=== PATIENT | male | born 1955 ===

== ENCOUNTER 2017-01-19 08:58 | Emergency (ER) | payer MEDICAID ==
[2017-01-19 09:01] VITALS: RESP 20
[2017-01-19 09:30] LABS: RBC URINE < 1 /hpf (0-3); URINE BACTERIA RARE (<OCC); URINE BILIRUBIN NEGATIVE (NEGATIVE); URINE BLOOD NEGATIVE (NEGATIVE); URINE COLOR Yellow (YELLOW); URINE GLUCOSE (UA) NORMAL (Normal); URINE KETONE NEGATIVE (NEGATIVE); URINE LEUKOCYTE ESTERASE NEG Leu/uL (Negative); URINE PROTEIN 1+ mg/dL (NEGATIVE); URINE UROBILINOGEN NORMAL mg/dL (0.2-1.0); WBC URINE 2 /hpf (0-5)
[2017-01-19] MEDS ORDERED: Sodium Chloride 0.9% 1,000 ML IV ONE (09:36)
[2017-01-19] MEDS ORDERED: Sodium Chloride 0.9% 1,000 ML ONE (09:48)
[2017-01-19 09:56] LABS: BASO % 0.4 % (0.0-2.0); EOS # 0.1 K/uL (0.0-0.7); EOS % 2.3 % (0.0-4.0); HEMATOCRIT 33.7 % (35.0-51.0); LYMPH # 0.9 K/uL (1.0-4.3); LYMPH % 15.5 % (20.0-40.0); MEAN CELL VOLUME 86.5 fL (80.0-94.0); MEAN CORPUSCULAR HEMOGLOBIN 28.8 pg (27.0-31.0); MEAN CORPUSCULAR HGB CONC 33.3 g/dL (33.0-37.0); MEAN PLATELET VOLUME 7.9 fL (7.2-11.7); MONO # 0.6 K/uL (0.0-0.8); MONO % 10.4 % (0.0-10.0); NRBC % 0.1 % (0.0-2.0); RED CELL DISTRIBUTION WIDTH 14.6 % (11.5-14.5); WHITE BLOOD COUNT 6.1 K/uL (4.8-10.8)
[2017-01-19 10:13] LABS: ALB/GLOB RATIO 1.3 (1.0-2.1); ALKALINE PHOSPHATASE 66 U/L (38-126); ALT/SGPT 27 U/L (21-72); AMYLASE 65 U/L (30-110); AST/SGOT 17 U/L (17-59); BILIRUBIN,TOTAL 0.5 mg/dL (0.2-1.3); BLOOD UREA NITROGEN 18 mg/dL (9-20); CALCIUM 8.6 mg/dl (8.6-10.4); CARBON DIOXIDE 23 mmol/L (22-30); CHLORIDE 97 mmol/L (98-107); GFR AFRICAN-AMERICAN > 60; GLUCOSE,RANDOM 165 mg/dL (75-110); POTASSIUM 4.4 mmol/L (3.6-5.2); SODIUM 135 mmol/L (132-148)
[2017-01-19] MEDS ORDERED: Iodixanol 320 MG/ML 100 ML BOTTLE IV ONE ×2 (10:57→11:07)
--- NOTE | 2017-01-19 11:14 | C.PDOC ---
History Of Present Illness Patient is a 61 year old male, with PMHx of NIDDM, presents to ED for evaluation of intermittent epigastric and periumbilical abdominal pain for the last 3 days. Pt states that pain is localized, non-radiating, and is not affected by food intake. However, pt notes decrease in appetite. Pt reports associated nausea, and single episodes of vomiting throughout the 3 days. Otherwise, pt denies fever, chills, headache, dizziness, neck pain, chest pain, shortness of breath, dyspnea, diaphoresis, palpitation, hematemesis, diarrhea, blood in stool, dysuria, hematuria, urinary frequency, back pain, fever, or chills. AMbulate to ED for evaluation, not in any apparent distress. Time Seen by Provider: 01/19/17 09:21 Chief Complaint (Nursing): Abdominal Pain History Per: Patient History/Exam Limitations: no limitations Onset/Duration Of Symptoms: Days (3), Intermittent Episodes Current Symptoms Are (Timing): Still Present Location Of Pain/Discomfort: Epigastric, Periumbilical Radiation Of Pain To:: None Quality Of Discomfort: "Pain" Associated Symptoms: Nausea, Vomiting, Loss Of Appetite. denies: Fever, Chills , Diarrhea, Back Pain, Chest Pain, Constipation, Urinary Symptoms Exacerbating Factors: None Alleviating Factors: None Recent travel outside of the [place]: No Additional History Per: Patient Past Medical History Reviewed: Historical Data, Nursing Documentation, Vital Signs Vital Signs: Last Vital Signs Temp 98.4 F 01/19/17 09:00 Pulse 85 01/19/17 09:00 Resp 20 01/19/17 09:00 BP 108/63 01/19/17 09:00 Pulse Ox 100 01/19/17 12:50 Family History: States: No Known Family Hx - Social History Hx Alcohol Use: No Hx Substance Use: No Review Of Systems Except As Marked, All Systems Reviewed And Found Negative. Constitutional: Negative for: Fever, Chills Cardiovascular: Negative for: Chest Pain, Palpitations, Light Headedness Respiratory: Negative for: Cough, Shortness of Breath Gastrointestinal: Positive for: Nausea, Vomiting, Abdominal Pain (epigastric, periumbilical). Negative for: Diarrhea, Constipation, Melena, Hematochezia, Hematemesis Genitourinary: Negative for: Dysuria, Frequency, Incontinence, Hematuria, Penile Discharge, Scrotal Pain Musculoskeletal: Negative for: Back Pain Neurological: Negative for: Headache, Dizziness Physical Exam - Physical Exam Appears: Non-toxic, No Acute Distress Skin: Normal Color, Warm, Dry, No Rash Head: Normacephalic Eye(s): bilateral: PERRL Nose: No Flaring Oral Mucosa: Moist, No Drooling Throat: No Erythema, No Drooling Neck: Trachea Midline, Supple Chest: Symmetrical Cardiovascular: Rhythm Regular, No Murmur, No JVD Respiratory: No Decreased Breath Sounds, No Accessory Muscle Use, No Rales, No Rhonchi, No Stridor, No Wheezing Gastrointestinal/Abdominal: Soft, Tenderness (mild RUQ), No Organomegaly, No Distention, No Guarding, No Rebound Back: No CVA Tenderness Extremity: No Pedal Edema, No Deformity Extremity: Bilateral: Atraumatic Neurological/Psych: Oriented x3, Normal Speech, Normal Cognition, Normal Motor, Normal Sensation ED Course And Treatment - Laboratory Results Result Diagrams: 01/19/17 09:52 01/19/17 09:52 Lab Interpretation: No Acute Changes ECG: Interpreted By Me, Viewed By Me ECG Rhythm: Sinus Rhythm ECG Interpretation: No Acute Changes Interpretation Of ECG: Single T wave inversion in lead III. No acute ST/T wave changes. Rate From EC (bpm) O2 Sat by Pulse Oximetry: 100 (on RA) Pulse Ox Interpretation: Normal - CT Scan/US Abd & pelvis CT Other Rad Studies (CT/US): Read By Radiologist, Radiology Report Reviewed CT/US Interpretation: PROCEDURE: CT Abdomen and Pelvis with contrast. HISTORY : RUQ pain, vomiting. COMPARISON: None. TECHNIQUE: Contrast dose: 100 mL Visipaque 320. Axial and reformatted coronal and sagittal CT images of the abdomen and pelvis were obtained after IV contrast administration. Radiation dose: Total exam DLP = 568.83 mGy-cm. This CT exam was performed using one or more of the following dose reduction techniques: Automated exposure control, adjustment of the mA and/or kV according to patient size, and/or use of iterative reconstruction technique. FINDINGS: LOWER THORAX: No evidence of pneumonia or pleural effusion. LIVER: There is 2.1 centimeter enhancing lesion at the posterior aspect of the liver dome image 13 series 2. The liver is otherwise demonstrate mild diffuse low-attenuation suggestive of mild steatosis. The portal vein is patent. GALLBLADDER AND BILE DUCTS: The gallbladder is distended. No CT evidence of acute cholecystitis. The common bile duct appears normal in caliber. PANCREAS: Unremarkable. No gross lesion or ductal dilatation. SPLEEN: Unremarkable. ADRENALS: Unremarkable. No mass. KIDNEYS AND URETERS: Unremarkable. No hydronephrosis. No solid mass. VASCULATURE: Unremarkable. No aortic aneurysm. BOWEL: Unremarkable. No obstruction. No gross mural thickening. APPENDIX: Normal appendix. PERITONEUM : Unremarkable. No free fluid. No free air. LYMPH NODES: Unremarkable. No enlarged lymph nodes. BLADDER: Unremarkable. REPRODUCTIVE: Prostate is mildly enlarged. BONES: No acute fracture. OTHER FINDINGS: None. IMPRESSION : No CT evidence of cholecystitis or appendicitis. 2.1 centimeter enhancing lesion seen at the posterior aspect of the liver dome. The differential diagnosis includes hepatoma versus hemangioma or adenoma. If clinically warranted further assessment by non emergent enhanced MRI or three-phase CT of the abdomen with contrast is suggested. No CT evidence of pancreatitis or biliary obstruction. Progress Note: Blood work, UA, Abd & Pelvis CT ordered and reviewed. Pt was given Zofran, Pepcid, and IV fluids. On re-evaluation, pt is afebrile, hemodynamicaly stable. Non-toxic. Pt reports, " feels much better". Tolerate Po well in ED. PUlseOx 97% RA. Neck: Supple, (-) JVD. ENT: no acute findings. Lungs: moderate improvement in wheezing, BS equal B/L. CVS: (+)S1S2 , reg. ABd: benign, (-) guarding, (-) rebound, (-) localized tenderness. Back : (-) CVA tenderness. Bloor work review and appears without acute abnoramlities compare to previous results. EKG noraml study. Imaging review, no acute abnoramlities. Accidental findings of Liver lesion noted and reported to patient, rec. outpt f/u. Pt has clinical findings c/w epigastric pain. Pt advised on course of ds. ref. to F/u with PMD, GI in 1- 2 days for re- evaluation. Return to ED if any worsening or new changes. Disposition Counseled Patient/Family Regarding: Studies Performed, Diagnosis, Need For Followup, Rx Given - Disposition Referrals: Jayce Mckeon MD [Staff Provider] - Disposition: HOME/ ROUTINE Disposition Time: 11:58 Condition: STABLE Additional Instructions: Encourage fluids Take medication as prescribed Follow up with PMD and GI in 2-3 days for re-evaluation. Return to ED ifa ny worsening or new changes. Prescriptions: Pantoprazole [Protonix EC Tab] 40 mg PO DAILY #20 ect Sucralfate [Carafate] 1 gm PO TID #20 tablet Instructions: Epigastric Pain (ED) Forms: [employer] (Paraguayan) Print Language: MOLDOVAN - Clinical Impression Clinical Impression: Abdominal pain - PA / BREAD BAKER / Resident Statement MD/DO has reviewed & agrees with the documentation as recorded. - Scribe Statement The provider has reviewed the documentation as recorded by the Justaibe Marlo Manrique All medical record entries made by the Justaibheather were at my direction and personally dictated by me. I have reviewed the chart and agree that the record accurately reflects my personal performance of the history, physical exam, medical decision making, and the department course for this patient. I have also personally directed, reviewed, and agree with the discharge instructions and disposition.
--- NOTE | 2017-01-19 12:36 | CT ---
PROCEDURE: CT Abdomen and Pelvis with contrast HISTORY: RUQ pain, vomiting COMPARISON: None. TECHNIQUE: Contrast dose: 100 mL Visipaque 320. Axial and reformatted coronal and sagittal CT images of the abdomen and pelvis were obtained after IV contrast administration. Radiation dose: Total exam DLP = 568.83 mGy-cm. This CT exam was performed using one or more of the following dose reduction techniques: Automated exposure control, adjustment of the mA and/or kV according to patient size, and/or use of iterative reconstruction technique. FINDINGS: LOWER THORAX: No evidence of pneumonia or pleural effusion. LIVER: There is 2.1 centimeter enhancing lesion at the posterior aspect of the liver dome image 13 series 2. The liver is otherwise demonstrate mild diffuse low-attenuation suggestive of mild steatosis. The portal vein is patent. GALLBLADDER AND BILE DUCTS: The gallbladder is distended. No CT evidence of acute cholecystitis. The common bile duct appears normal in caliber. PANCREAS: Unremarkable. No gross lesion or ductal dilatation. SPLEEN: Unremarkable. ADRENALS: Unremarkable. No mass. KIDNEYS AND URETERS: Unremarkable. No hydronephrosis. No solid mass. VASCULATURE: Unremarkable. No aortic aneurysm. BOWEL: Unremarkable. No obstruction. No gross mural thickening. APPENDIX: Normal appendix. PERITONEUM: Unremarkable. No free fluid. No free air. LYMPH NODES: Unremarkable. No enlarged lymph nodes. BLADDER: Unremarkable. REPRODUCTIVE: Prostate is mildly enlarged. BONES: No acute fracture. OTHER FINDINGS: None. IMPRESSION: No CT evidence of cholecystitis or appendicitis. 2.1 centimeter enhancing lesion seen at the posterior aspect of the liver dome. The differential diagnosis includes hepatoma versus hemangioma or adenoma. If clinically warranted further assessment by non emergent enhanced MRI or three-phase CT of the abdomen with contrast is suggested. No CT evidence of pancreatitis or biliary obstruction.
[2017-01-19 13:21] VITALS: BP 153/73; PULSE 73; TEMP 97.7; O2SAT 98
--- NOTE | 2017-01-22 13:52 | CARD ---
APPROVED REPORT EKG Measurement Heart [id number] <Conclusion> Normal sinus rhythm Normal ECG
== END 2017-01-19 13:38 | disposition home or self-care (01) ==
LOC: C.ER 08:58
DX: R10.13 Epigastric pain (principal)
CPT/HCPCS: 74177; 80053; 81001; 82150; 83690; 85025; 96361; 96374; 96375; 99285; J2405; J7040; Q9967

== ENCOUNTER 2017-06-14 14:01 | Emergency (ER) | payer MEDICAID ==
[2017-06-14 14:09] VITALS: BMI 27.3
[2017-06-14 14:13] VITALS: BP 144/78; PULSE 79; RESP 18; TEMP 99.7; O2SAT 99
--- NOTE | 2017-06-14 15:33 | C.PDOC ---
History Of Present Illness 62 yr old M c/o low grade fever, productive cough and body aches for 3 days. Denies n/v/d, abdominal pain. Time Seen by Provider: 06/14/17 14:35 Chief Complaint (Nursing): Fever History Per: Patient History/Exam Limitations: no limitations Onset/Duration Of Symptoms: Days (3) Current Symptoms Are (Timing): Still Present Associated Symptoms: Fever, Cough, Sputum Past Medical History Reviewed: Historical Data, Nursing Documentation, Vital Signs Vital Signs: Last Vital Signs Temp 99.7 F H 06/14/17 14:09 Pulse 79 06/14/17 14:09 Resp 18 06/14/17 14:09 BP 144/78 06/14/17 14:09 Pulse Ox 99 06/14/17 15:33 - Medical History PMH: HTN Family History: States: No Known Family Hx - Social History Hx Alcohol Use: No Hx Substance Use: No - Immunization History Hx Tetanus Toxoid Vaccination: No Hx Influenza Vaccination: No Hx Pneumococcal Vaccination: No Review Of Systems Except As Marked, All Systems Reviewed And Found Negative. Constitutional: Positive for: Fever Eyes: Negative for: Pain ENT: Negative for: Ear Pain Cardiovascular: Negative for: Chest Pain Respiratory: Positive for: Cough. Negative for: Shortness of Breath, Hemoptysis Gastrointestinal: Negative for: Nausea, Vomiting, Abdominal Pain Genitourinary: Negative for: Dysuria Skin: Negative for: Rash Neurological: Positive for: Headache. Negative for: Seizures, Dizziness Physical Exam - Physical Exam Appears: Well, Non-toxic, No Acute Distress Skin: Normal Color, Warm Head: Atraumatic, Normacephalic Eye(s): bilateral: Normal Inspection Ear(s): Bilateral: Normal Oral Mucosa: Moist Tongue: Normal Appearing Lips: Normal Appearing Throat: Normal Neck: Normal Lymphatic: Deferred Chest: Symmetrical Cardiovascular: Rhythm Regular Respiratory: Normal Breath Sounds, No Rales, No Rhonchi Gastrointestinal/Abdominal: Normal Exam Extremity: Normal ROM Neurological/Psych: Oriented x3, Normal Speech ED Course And Treatment O2 Sat by Pulse Oximetry: 99 Pulse Ox Interpretation: Normal Disposition Counseled Patient/Family Regarding: Diagnosis, Need For Followup, Rx Given - Disposition Referrals: [facility] [Outside] [facility] [Outside] Disposition: HOME/ ROUTINE Disposition Time: 15:30 Condition: STABLE Additional Instructions: FOLLOW UP WITH PMD/CLINIC IN 1-2 DAYS FOR RE-EVALUATION. IF SYMPTOMS GET WORSE OR ANY NEW CONCERNING SYMPTOMS DEVELOP RETURN TO ED. Prescriptions: Acetaminophen [Tylenol Extra Strength] 1 tab PO Q6H PRN #20 tablet PRN Reason: Fever >100.4 F Azithromycin [Zithromax] 250 mg PO DAILY #6 tab Instructions: Upper Respiratory Infection (ED) Forms: [employer] (Tunisian), Gen Discharge Inst Slovak Print Language: ALBANIAN - Clinical Impression Clinical Impression: Upper respiratory infection
== END 2017-06-14 15:37 | disposition home or self-care (01) ==
LOC: C.ER 14:01
DX: J06.9 Acute upper respiratory infection, unspecified (principal)